=== PATIENT | female | born 1940 | race Caucasian/White ===

== ENCOUNTER 2023-11-26 08:36 | Emergency (ER) | payer MEDICARE, OTHER, SELFPAY ==
[2023-11-26 08:39] VITALS: BP 185/104
[2023-11-26 08:53] VITALS: BMI 35.0
--- NOTE | 2023-11-26 08:54 | EDRN ---
Ameya BURRIS in room w/ pt at this time.
--- NOTE | 2023-11-26 09:03 | ED.GENMED ---
History of Present Illness
General
Chief Complaint: Abdominal Symptoms
Source: patient and family
Time Seen by Provider: 11/26/23 08:52
History of Present Illness
History of Present Illness:
83yoF with a history of chronic UTIs on Macrobid presenting with her and daughter for evaluation of malaise. Patient states she has 'just not been feeling well' over the past week. She reports intermittent nausea throughout the week. She has
a pilonidal cyst that has been draining over the past week. She felt warm today but did not check her temperature. She had an episode of chest pain 2 days ago which radiates to her L arm and ear which resolved after taking Pepcid. She has not had
any further chest pains since then. She is worried that she may have sepsis. She is otherwise asymptomatic and denies any dysuria, urinary frequency, abdominal pain, cough, URI symptoms.
Phy Exam
General Physical Exam
General Presentation: well appearing and no apparent distress
General age: appears stated age
General Skin: warm and dry
General Habitus: normal
General Mental: alert
ENT Exam
ENT Exam: normocephalic
Cardiovascular Exam
Cardiovascular Exam: regular rate/rhythm and no murmur
Pulmonary Exam
Pulmonary Exam: lungs clear, no respiratory distress, no rales, no crackles and no wheezing
Gastrointestinal Exam
Gastrointestinal Exam: non tender, soft and non distended
Neurological Exam
Neurological Exam: alert
Thoreau Coma Scale
Eye Opening: Spontaneous
Verbal Response: Oriented
Motor Response: Obeys Commands
GCS Total Score: 15
Skin Exam
Skin Exam: normal color, warm/dry and other (Small, approx 1cm area of induration at the L gluteal cleft. Area is non-tender without drainage or fluctuance. No surrounding cellulitis or crepitus. )
Psychiatric Exam
Psychiatric Exam: normal mood/affect
Course
Orders/Labs/Results
Orders:
Orders
11/26/23 09:03
Electrocardiogram (*1) Urgent
Reason for Study: Chest Pain
Cardiac Monitoring- Treatment ONCE
EKG- Treatment ONCE
IV Insert/Care/Rem.- Treatment PRN
11/26/23 09:04
0.9% Sodium Chloride 500 ml [Nss] 500 ml IV BOLUS
CR Chest - 2 Views Urgent
Comment:
Reason For Exam: CP
11/26/23 09:34
COVID-19 Antigen Urgent
Source: Nasal Swab
Influenza A+B Rapid Molecular Urgent
[facility] Source: Nasal Swab
Specimen Description:
11/26/23 10:19
Complete Blood Count/With Diff Urgent
Comprehensive Metabolic Panel Urgent
Lactic Acid Urgent
Lipase Urgent
Troponin I Urgent
11/26/23 10:40
Urinalysis Reflex To Culture Urgent
Date Specimen was Collected: 11/26/23
Time Specimen was Collected: 10:39
11/26/23 11:37
Electrocardiogram (*1) Urgent
Reason for Study: Chest Pain
EKG- Treatment ONCE
11/26/23 12:03
Troponin I Urgent
11/26/23 12:30
Acetaminophen [Tylenol] 650 mg PO NOW STA
Abnormal Lab Results
11/26/23
10:19
Absolute Lymphs (auto) 1.1 L 10^3/uL
(1.2-3.4)
BUN 20 H mg/dl
(7-17)
Glucose 103 H mg/dl
(70-99)
Albumin 2.6 L g/dl
(3.5-5.0)
11/26/23 10:19
11/26/23 10:19
Vital Signs
Initial and Last Documented VS:
Initial Vital Signs
Temp Pulse Resp BP Pulse Ox
98.2 F 81 16 185/104 94
11/26/23 08:39 11/26/23 08:39 11/26/23 08:39 11/26/23 08:39 11/26/23 08:39
Last Documented Vital Signs
Temp Pulse Resp BP Pulse Ox
98.2 F 72 14 155/70 100
11/26/23 08:39 11/26/23 12:45 11/26/23 12:45 11/26/23 12:18 11/26/23 12:45
MDM/Problems Addressed
Differential Diagnosis Includes:
83yoF here with multiple complaints including nausea and malaise x 1 week. She reports a pilonidal cyst that has been draining throughout the week. Had chest pain 2 days ago which resolved after taking Pepcid. Patient is worried that she may have
sepsis. She is hypertensive with otherwise normal vital signs. She is not meeting any SIRS criteria on arrival. She is well appearing in no distress. There is a 1cm area of induration at the L gluteal cleft without any drainage, tenderness, or
surrounding cellulitis. Differential diagnosis includes but is not limited to: dehydration, viral illness, RADHA, electrolyte abnormality, ACS
Initial ED plan: Check cardiac labs, lactate, COVID/flu swab, EKG, and CXR. IV fluid bolus.
*EKG
Interpreted by ED Provider?: Yes
EKG Intrepretation Date: 11/26/23
Heart Rate: 79
Rate: normal
Rhythm: sinus
Boyd: normal axis
Interval: normal interval
QRS Pattern: normal QRS
Ischemia: no ischemia
*Critical Care Note
Total Time (30-74mins, 75-104mins- exclusive of procedures): Not Applicable
Update Note
Update Note:
Labs unremarkable including normal white count and lactate. COVID/flu swabs negative. No ischemic changes on EKG and troponin WNL. UA sent which is normal without any signs of infection. Daughter requesting blood cultures. Extremely low clinical
suspicion for bacteremia, no source of infection identified, and patient is not meeting any SIRS criteria. No indication for blood cultures at this time. Delta troponin/EKG unchanged. Patient feeling improved after fluid bolus and is requesting to
be discharged. No indication for hospitalization. Patient also seen by Dr. Ng. Patient advised to f/u with her PCP and ED return precautions discussed. She was discharged in stable condition.
ED Attending Note
-
Portions of this chart may have been created with voice recognition software.� Occasional wrong word or��sound alike� substitutions may have occurred due to the inherent limitations of voice recognition software.
Discharge Plan
Departure
Patient Disposition: Home (Routine Discharge)
Date of Disposition: 11/26/23
Time of Disposition: 12:58
Patient with high blood pressure during this ER visit?: Yes
Discharge Problem:
Nausea, Malaise
Instructions: Fatigue ED
Referrals:
Brijesh Palmer CRNP [Family Provider] -
Activity Restrictions/Additional Instructions:
Please call today to schedule a follow-up with your primary care provider. Return to the ER with any new or worsening symptoms.
Interventions
Interventions:
*Risk Screen - Suicide Last Done: 11/26/23 08:39
*General Assessment Last Done: 11/26/23 08:53
*Neglect/Abuse Screening Last Done: 11/26/23 08:54
ED- Fall Risk Assessment Last Done: 11/26/23 08:54
*ED COVID-19 Vaccine History Last Done: 11/26/23 08:53
*Nursing Disposition Last Done: 11/26/23 13:27
DD-Eezpnm-Rjnzkhzccv Assessment Last Done: 11/26/23 09:30
Discharge Date and Time
Discharge Date/Time: 11/26/23 13:30
Print Language: [place]
[2023-11-26 09:31] VITALS: BP 172/77
--- NOTE | 2023-11-26 09:53 | EDRN ---
Attempted IV access x2 where pt directed me to attempt w/out success. VAT HEATING ELEMENT WINDER Jin was paged and now in room w/pt. Pt's daughter asked about a urine test this RN informed on how to provide a urine and pt kept repeating I did not need to as she
knows how. Pt's daughter after this RN paged HEATING ELEMENT WINDER to start IV access and get bloods asked how long it would take for HEATING ELEMENT WINDER to arrive to room. This RN responded all 3 times that this would be unknown until HEATING ELEMENT WINDER called back. THen pt's daughter asked
the same again. This RN spoke to Ameya BURRIS about a urine test and was informed pt has no symptoms and is on profilactic antibiotics for UTI and that it would not be appropriate to order this test w/out evidence of possible infection. This RN
repeated what she was told to pt and her daughter and afterwards daughter came out to PA requesting w/ arms folded over her chest and angry posture for a urinary test.
[2023-11-26 10:02] LABS: COVID-19 Antigen Negative (Negative)
[2023-11-26 10:07] VITALS: BP 181/79
[2023-11-26] MEDS: NSS 500 IV (10:09)
[2023-11-26 10:30] LABS: % Basophils 0.6 % (0-2); % Eosinophils 1.1 % (0-6); % Immature Granulocytes 0.2 % (0-0.5); % Lymphocytes 21.8 % (20.5-51.1); % Monocytes 5.4 % (1.7-9.3); % Neutrophils 70.9 % (42.2-75.2); Absolute Eosinophils 0.1 10^3/uL (0-0.7); Absolute Lymphocytes 1.1 10^3/uL (1.2-3.4); Absolute Monocytes 0.3 10^3/uL (0.1-0.6); Absolute Neutrophils 3.7 10^3/uL (1.4-6.5); Hemoglobin 13.6 g/dL (12.0-16.0); Mean Corpuscular Volume 82.3 fL (81.0-99.0); Mean Platelet Volume 9.3 fL (7.4-10.4); Nucleated Red Blood Cells % 0 %; Platelet Count 247 10^3/uL (130-400); Red Blood Cell Count 4.86 10^6/uL (4.20-5.40); Red Cell Dist. Width 13.9 % (11.5-14.5); White Blood Cell Count 5.2 10^3/uL (4.8-10.8)
--- NOTE | 2023-11-26 10:30 | EDRN ---
Pt OOB to BR and provided a urine sample.
--- NOTE | 2023-11-26 10:31 | EDRN ---
Pt's daughter requested of ED PCT Thais who went in to do phlebotomy to about drawing blood cultures and IV VAT RN Jin was able to get an IV but unable to draw any labs. This RN went in after ED PCT informed her about blood cultures not being
ordered and why and the daughter was very upset saying that her mother needs to have blood cultures drawn as pt 'is not right.' This RN attempted to explain the criteria and daughter said that does not matter she needs blood cultures drawn. This RN
asked if Ameya BURRIS had explained to her about not ordering blood cultures and daughter agreed she had but again said that makes no difference she needs them drawn. Pt stated then she had a fever prior to arrival but took tylenol. This RN asked
what her temperture was and was informed that temp not taken and unkown level of fever.
[2023-11-26 10:42] VITALS: BP 182/74
[2023-11-26 10:43] LABS: ALT (SGPT) 17 U/L (0-35); AST (SGOT) 24 U/L (14-36); Albumin 2.6 g/dl (3.5-5.0); Alkaline Phosphatase 77 U/L (38-126); Blood Urea Nitrogen 20 mg/dl (7-17); Calcium 9.8 mg/dl (8.4-10.2); Carbon Dioxide 27 mmol/L (22-30); Chloride 106 mmol/L (98-107); Estimated Creatinine Clearance 75 ml/min; Glucose 103 mg/dl (70-99); Lipase 154 U/L (23-300); Potassium 4.1 mmol/L (3.5-5.1); Sodium 141 mmol/L (135-145); Total Bilirubin 0.4 mg/dl (0.2-1.3); Total Protein 6.3 g/dl (6.3-8.2); eGFR > 60.00
[2023-11-26 10:46] LABS: Lactic Acid 0.8 mmol/L (0.7-2.0)
[2023-11-26 10:51] LABS: Urine Albumin Negative (Neg - Trace); Urine Bilirubin Negative (Negative); Urine Character Clear (Clear); Urine Color Yellow; Urine Glucose Negative (Negative); Urine Ketone Negative (Negative); Urine Leukocyte Negative (Negative); Urine Nitrite Negative (Negative); Urine Occult Blood Negative (Negative); Urine Urobilinogen Negative (Neg - 1+)
--- NOTE | 2023-11-26 10:57 | EDRN ---
Pt's daughter w/ joinery patternmaker spouse came up to Ameya BURRIS to demand again blood cultures. Veneer Sample Maker spouse said that his mother law looks horrible and needs to have blood cultures drawn. Ameya BURRIS explained reasoning related to shortage of BC
and lab results not demonstrating a need to draw blood cultures. Valeri MENDOZA was informed and Dr. Mckeon and Ameya BURRIS discussed pt.
[2023-11-26 11:00] VITALS: BP 167/69
[2023-11-26 11:00] LABS: Troponin I < 0.012 ng/ml
--- NOTE | 2023-11-26 11:14 | EDRN ---
Dr. Ng in room w/pt and family at this time. Pt's daughter had asked for water and ED PCT just brought in large cup of water at this time.
--- NOTE | 2023-11-26 11:33 | EDRN ---
Pt called ED PCT to room and complained her IV site is red at this time.
--- NOTE | 2023-11-26 11:36 | EDRN ---
IV R FA was red and sl swollen and removed at this time.
--- NOTE | 2023-11-26 11:37 | EDRN ---
Pt is awaiting repeat troponin test due at 12 noon.
--- NOTE | 2023-11-26 11:45 | EDRN ---
Pt OOB to BR at this time.
--- NOTE | 2023-11-26 12:10 | EDRN ---
Repeat troponin drawn and sent by Frandy Ware RN at this time.
[2023-11-26 12:18] VITALS: BP 155/70
--- NOTE | 2023-11-26 12:25 | EDRN ---
Tech reported to this RN pt's daughter requested brandin lexie for pt. Pt said that she did not want a brandin lexie. Daughter told pt that she should drink the brandin lexie so she could feel better. Pt per tech declined again a brandin lexie while tech was in
room. Tech reported to this RN that daughter the conversation. This RN was going to bring in brandin lexie as requested by daughter but was in midst of caring for another pt. This RN asked tech to bring pt brandin lexie at this time.
[2023-11-26 12:35] LABS: Troponin I < 0.012 ng/ml
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
--- NOTE | 2023-11-26 13:25 | EDRN ---
When emt p approached room w/ w/c room was empty.
--- NOTE | 2023-11-26 13:26 | EDRN ---
At discharge this RN offered a w/c for pt. Pt declined and pt's daughter insisted this RN bring in a w/c right now. This RN called a tech to bring w/c to room through discharge door operator.
== END 2023-11-26 13:30 | disposition home or self-care (01) ==
LOC: EMR 08:36
PROVIDERS: Physician Assistant; EMERGENCY PHYSICIAN Emergency Medicine; FAMILY PHYSICIAN Nurse Practitioner Gerontology
DX: R53.81 Other malaise (principal); L05.91 Pilonidal cyst without abscess; Z87.440 Personal history of urinary (tract) infections
CPT/HCPCS: 99283; 96360; 71046; 80053; 81003; 83605; 83690; 84484; 85025; 87502; 87811; 93005